=== PATIENT | male | born 1975 | race African-American/Black ===

== ENCOUNTER 2018-11-16 17:11 | Emergency (ER) | payer OTHER ==
[~2018-11-16] VITALS: Ht 175.3 cm; Wt 59.6 kg
[2018-11-16 17:14] VITALS: BP 111/61; PULSE 71; RESP 16; Ht 175.3 cm; Wt 59.6 kg
--- NOTE | 2018-11-16 17:43 | ERD ---
ER Documentation Chief Complaint Chief Complaint throat pain/"felt like throat was closing" while driving today w/ CWP HPI This is a 43-year-old male who presents for evaluation of throat pain. Patient states that he was in his car, and had a sudden feeling since seeing that his throat was closing, and felt like he needed to gasp for air. He endorses chest wall pain with this episode, it was self resolving. Patient states that he has felt like he is been having dysphasia, for several months now. He is a former smoker, he denies chronic alcohol use. ROS All systems reviewed and are negative except as per history of present illness. Allergies Allergies: Uncoded Allergies: SEAFOOD (Allergy, Unknown, rash,swelling,SOB, 11/16/18) Physical Exam Vitals Vital Signs Date Temp Pulse Resp B/P (MAP) Pulse Ox O2 O2 Flow FiO2 Time Delivery Rate 11/16/18 99.2 71 16 111/61 100 17:14 (78) Physical Exam Const: Very anxious appearing, nontoxic in no respiratory distress, there is no hoarse voice Head: Atraumatic Eyes: Normal Conjunctiva ENT: Normal External Ears, Nose and Mouth. Uvula midline Neck: Full range of motion. No meningismus. There is no thyromegaly, trachea midline Resp: Clear to auscultation bilaterally, no wheezes rales or rhonchi Cardio: Regular rate and rhythm, no murmurs Abd: Soft, non tender, non distended. Normal bowel sounds Skin: No petechiae or rashes Back: No midline or flank tenderness Ext: No cyanosis, or edema Neur: Awake and alert Psych: Normal Mood and Affect Result Diagram: 11/16/18 1750 11/16/18 175 Results 24 hrs Laboratory Tests Test 11/16/18 17:50 White Blood Count 5.3 10^3/ul Red Blood Count 4.75 10^6/ul Hemoglobin 12.8 g/dl Hematocrit 40.1 % Mean Corpuscular Volume 84.4 fl Mean Corpuscular Hemoglobin 26.9 pg Mean Corpuscular Hemoglobin Concent 31.9 g/dl Red Cell Distribution Width 13.2 % Platelet Count 239 10^3/UL Mean Platelet Volume 9.6 fl Immature Granulocytes % 0.200 % Neutrophils % 36.8 % Lymphocytes % 52.7 % Monocytes % 6.3 % Eosinophils % 3.4 % Basophils % 0.6 % Nucleated Red Blood Cells % 0.0 /100WBC Immature Granulocytes # 0.010 10^3/ul Neutrophils # 1.9 10^3/ul Lymphocytes # 2.8 10^3/ul Monocytes # 0.3 10^3/ul Eosinophils # 0.2 10^3/ul Basophils # 0.0 10^3/ul Nucleated Red Blood Cells # 0.0 10^3/ul Sodium Level 143 mmol/L Potassium Level 4.7 mmol/L Chloride Level 105 mmol/L Carbon Dioxide Level 27 mmol/L Anion Gap 11 Blood Urea Nitrogen 9 mg/dl Creatinine 1.07 mg/dl Est Glomerular Filtrat Rate mL/min > 60 mL/min Glucose Level 106 mg/dl Calcium Level 9.5 mg/dl Troponin I Pending Procedures/MDM 43-year-old male presents for evaluation of sensation like his throat was closing in. This episode was brief and self resolving, have a very low suspicion for cardiac etiology of his symptoms as he states a clear history of feeling of his throat closing in. He had no signs or symptoms of anaphylaxis, and when I evaluated him he had no respiratory distress, given his age and male gender EKG and troponin were ordered, which were negative. A neck x-ray of the soft tissues was also ordered, in order to evaluate for an obvious mass or air way compromise. With a plan for the patient, that this could not completely rule out a malignancy, and for his chronic dysphasia, he would need urgent follow-up with his primary care doctor, the patient agreed to follow-up within the next week, at discharge patient was in no distress. X-ray Soft Tissue Neck 2V Interpreted by me: Bones: No fracture Air spaces: Normal Foreign body: None Chest X-ray 1V Interpreted by me: Soft Tissue: No acute abnormalities Bones: No acute abnormalities Mediastinum/Cardiac Silhouette/Lungs: No acute abnormalities EKG: Rate/Rhythm: Normal Sinus Rhythm QRS, ST, T-waves: No changes consistent w/ acute ischemia Impression: No evidence of ischemia or arrhythmia Departure Diagnosis: Primary Impression: Sore throat Condition: Stable ANGEL ALVARADO MD Nov 16, 2018 17:43
== END 2018-11-16 19:24 | disposition home or self-care (01) ==
LOC: FTE 17:11
DX: J02.9 Acute pharyngitis, unspecified (principal)
CPT/HCPCS: 36415; 70360; 71045; 80048; 84484; 85025; 93005; Z7502